=== PATIENT | male | born 1995 | race African-American/Black ===

== ENCOUNTER 2017-01-30 17:21 | Emergency (ER) | payer SELFPAY | END 2017-01-30 19:50 | LOC: D.ER 17:21 | DX: S09.90XA Unspecified injury of head, initial encounter (principal); V23.4XXA Motorcycle driver injured in collision with car, pick-up truck or van in traffic accident, initial encounter; Y93.89 Activity, other specified; Y92.410 Unspecified street and highway as the place of occurrence of the external cause; G31.84 Mild cognitive impairment of uncertain or unknown etiology; S69.92XA Unspecified injury of left wrist, hand and finger(s), initial encounter; M25.521 Pain in right elbow; F17.200 Nicotine dependence, unspecified, uncomplicated ==

== ENCOUNTER 2017-04-09 10:17 | Emergency (ER) | payer SELFPAY ==
[2017-04-09 11:35] LABS: BASOPHILS 0.3 % (0-2); EOSINOPHILS 3.7 % (0-7); HEMATOCRIT 40.8 % (42.0-54.0); IMMATURE GRANULOCYTES 0.1 % (0-5); LYMPHOCYTES 23.5 % (15-50); MCH 31.1 pg (26.0-34.0); MCHC 34.3 g/dL (31.0-37.0); MCV 90.7 fL (80.0-100.0); MEAN PLATELET VOLUME 11.6 fL (7.4-10.4); MONOCYTES 7.4 % (2-11); PLATELET COUNT 160 10x3/uL (130-400); RDW 11.9 % (11.5-14.5); WBC 6.8 10x3/uL (4.8-10.8)
[2017-04-09 11:54] LABS: APTT 30.6 SECONDS (22.8-39.4); INR 1.11 (0.85-1.17); PROTIME 14.2 SECONDS (11.6-15.0)
[2017-04-09 12:07] LABS: ALBUMIN 4.1 g/dL (3.4-5.0); ALKALINE PHOSPHATASE 43 U/L (46-116); ALT (SGPT) 28 U/L (10-68); CALC OSMOLALITY 280 mosm/kg (275-300); CALCIUM 8.9 mg/dL (8.5-10.1); CARBON DIOXIDE 29.3 mmol/L (21.0-32.0); CHLORIDE - SERUM 105 mmol/L (98-107); CREATININE - SERUM 0.8 mg/dL (0.6-1.3); GLUCOSE 85 mg/dL (74-106); POTASSIUM - SERUM 4.3 mmol/L (3.5-5.1); SODIUM 142 mmol/L (136-145); UREA NITROGEN 11 mg/dL (7-18); eGFR NON AFRICAN AMERICAN > 90 mL/min (90-120)
== END 2017-04-09 11:38 | disposition home or self-care (01) ==
LOC: D.ER 10:17
PROVIDERS: Emergency Medicine
DX: S61.211A Laceration without foreign body of left index finger without damage to nail, initial encounter (principal); X58.XXXA Exposure to other specified factors, initial encounter; L03.011 Cellulitis of right finger; F17.200 Nicotine dependence, unspecified, uncomplicated

== ENCOUNTER 2019-08-20 09:58 | Emergency (ER) | payer MEDICAID ==
[~2019-08-20] VITALS: Ht 170.2 cm; Wt 59.5 kg
[2019-08-20 10:11] VITALS: Ht 170.2 cm; Wt 59.5 kg
[2019-08-20] MEDS ORDERED: IBUPROFEN800 MG PO (11:53)
[2019-08-20 12:04] VITALS: BP 128/79
== END 2019-08-20 12:04 | disposition home or self-care (01) ==
LOC: D.ER 09:58
DX: S61.210A Laceration without foreign body of right index finger without damage to nail, initial encounter (principal); W45.8XXA Other foreign body or object entering through skin, initial encounter